=== PATIENT | female | born 1990 | race Caucasian/White ===

== ENCOUNTER 2017-03-10 09:11 | Emergency (ER) | payer OTHER ==
--- NOTE | ~2017-03-10 | CR126 ---
[facility] A Service [facility] RADIOLOGY TEXT RESULTS PATIENT: MAHESH TURNER LOCATION: SED : 86 UNIT #: [id number] AGE: [address]: Anika Velez APRN SEX: F ORDER DR: [id number] [place] [id number] E MR#: [id number] Acc #: [id number] NAME: MAHESH TURNER : 1990 SEX: F STUDY DATE/TIME: 03/10/2017 10:15 UNIT: SED ROOM: STUDY DESCRIPTION: CR Foot Complete Min 3 View Lt Attending Physician: Anika Velez A.P.R.N. Ordering Physician: Jose Francisco Foley M.D. Primary Care Physician: Eduardo Hansen M.D. MEDICAL IMAGING REPORT This report is preliminary unless electronic signature is present. EXAM Left foot, 3 views, 03/10/2017, 1015 hours. CLINICAL HISTORY 26-year-old with foot pain in the heel. Patient tripped over her dog and fell last night. COMPARISON None FINDINGS AP, lateral, and oblique views demonstrate overall normal bone density. There is no acute fracture or dislocation. Patient does have moderate sized spurs at the calcaneus at both the plantar surface and at the Achilles insertion. IMPRESSION 1. No fracture or dislocation. 2. There is moderate spurring at the calcaneus at the plantar surface and at the Achilles insertion. Dictated by... Holly Peters M.D. THIS IS AN ELECTRONICALLY VERIFIED REPORT Holly Peters M.D. at 03/10/2017 2:29 PM ELLENM/patrick TD: 03/10/2017 10:57 JOB #: [id number] [facility] A Service [facility] RADIOLOGY TEXT RESULTS PATIENT: MAHESH TURNER LOCATION: SED : 88 UNIT #: [id number] AGE: [address]: Anika Velez APRN SEX: F ORDER DR: MEDICAL IMAGING REPORT Page 1 of 1
[~2017-03-10 09:11] MED LIST: ALBUTEROL17 GM INH; ANSAID100 MG PO; AUGMENTIN PO; FIORICET1 TAB PO; FLEXERIL10 MG PO; MACROBID100 MG PO; MEDROL DOSEPAK4 MG PO; NAPROSYN500 MG PO; NO MEDICATIONS; PHENERGAN25 M1 PO; PREDNISONE PO; VOLTAREN50 MG PO
[2017-03-10] MEDS ORDERED: TRILEPTAL300 MG PO (09:29)
[2017-03-10] MEDS ORDERED: PROZAC40 MG PO (09:29)
== END 2017-03-10 11:07 | disposition home or self-care (01) ==
LOC: SED 09:11
DX: S90.32XA Contusion of left foot, initial encounter (principal); G43.909 Migraine, unspecified, not intractable, without status migrainosus; F31.9 Bipolar disorder, unspecified; F17.210 Nicotine dependence, cigarettes, uncomplicated; Z88.5 Allergy status to narcotic agent; Z79.899 Other long term (current) drug therapy; X50.1XXA Overexertion from prolonged static or awkward postures, initial encounter; Y92.009 Unspecified place in unspecified non-institutional (private) residence as the place of occurrence of the external cause
CPT/HCPCS: 29405; 73630; 99283